=== PATIENT | female | born 1955 | race Caucasian/White ===

== ENCOUNTER 2018-08-10 10:44 | Emergency (ER) | payer OTHER ==
[2018-08-10 10:52] VITALS: Ht 149.9 cm
[2018-08-10 13:00] VITALS: BP 157/70
== END 2018-08-10 13:00 | disposition home or self-care (01) ==
LOC: ED 10:44
DX: T15.01XA Foreign body in cornea, right eye, initial encounter (principal); X18.XXXA Contact with other hot metals, initial encounter; Y93.89 Activity, other specified; Y92.513 Shop (commercial) as the place of occurrence of the external cause; Y99.0 Civilian activity done for income or pay

== ENCOUNTER 2019-02-14 05:55 | Emergency (ER) | payer OTHER ==
[~2019-02-14] VITALS: Ht 149.9 cm; Wt 99.3 kg
[2019-02-14 06:00] VITALS: Ht 149.9 cm; Wt 99.3 kg
[2019-02-14 07:11] VITALS: BP 135/75
== END 2019-02-14 07:11 | disposition home or self-care (01) ==
LOC: ED 05:55
DX: K08.89 Other specified disorders of teeth and supporting structures (principal)